=== PATIENT | female | born 1975 | race Caucasian/White ===

== ENCOUNTER → 2018-01-18 | Outpatient (REF) | payer MEDICARE ==
[2018-01-18 20:05] LABS: CHLAMYDIA DNA AMPLIFICATION NEGATIVE (NEGATIVE); GC DNA AMPLIFICATION NEGATIVE (NEGATIVE)
== END ==
LOC: M LAB REF 16:40
DX: Z11.3 Encounter for screening for infections with a predominantly sexual mode of transmission (principal); R30.0 Dysuria
CPT/HCPCS: 87086

== ENCOUNTER 2018-01-27 15:24 | Emergency (ER) | payer MEDICARE, MEDICAID ==
[2018-01-27] MEDS: NS 500 ML IV (16:00)
[2018-01-27 16:15] LABS: HEMATOCRIT 30.9 % (36.0-47.0); HEMOGLOBIN 9.6 g/dl (12.0-15.5); MEAN CORPUSCULAR HGB CONC 31.1 g/dl (32.0-36.5); MEAN CORPUSCULAR VOLUME 70.7 fl (80.0-96.0); PLATELET COUNT, AUTOMATED 113 10^3/uL (150-450); RED BLOOD COUNT 4.37 10^6/uL (4.00-5.40); RED CELL DISTRIBUTION WIDTH 22.9 % (11.5-14.5); WHITE BLOOD COUNT 3.9 10^3/uL (4.0-10.0)
[2018-01-27 16:27] LABS: INR 1.02; PARTIAL THROMBOPLASTIN TIME 26.3 SECONDS (26.8-37.9); PROTHROMBIN TIME 13.5 SECONDS (12.4-14.5)
[2018-01-27 16:44] LABS: POSITIVE MORPH POS FLAG
[2018-01-27 16:45] LABS: ADD MANUAL DIFFER YES; DIFF SLIDE NUMBER 306
[2018-01-27 16:47] LABS: ATYPICAL LYMPH 2 % (0-5); EOSINOPHILS 2 % (0-5); LYMPHOCYTES 45 % (16-52); MONOCYTES 7 % (0-8); NEUTROPHILS 44 % (35-75)
[2018-01-27 16:48] LABS: ALBUMIN/GLOBULIN RATIO 0.77 (1.00-1.93); ALKALINE PHOSPHATASE 70 U/L (45-117); ALT/SGPT 14 U/L (12-78); ANION GAP 4 MEQ/L (8-16); ANISOCYTOSIS 3+; AST/SGOT 27 U/L (7-37); BILIRUBIN,DIRECT < 0.1 MG/DL (0.0-0.2); BILIRUBIN,TOTAL 0.5 MG/DL (0.2-1.0); BLOOD UREA NITROGEN 8 MG/DL (7-18); CALCIUM LEVEL 8.4 MG/DL (8.5-10.1); CARBON DIOXIDE LEVEL 27 MEQ/L (21-32); CHLORIDE LEVEL 109 MEQ/L (98-107); CPK CREATINE PHOSPHOKINASE 68 U/L (26-192); CREATININE FOR GFR 0.76 MG/DL (0.55-1.30); GLOMERULAR FILTRATION RATE > 60.0 (>58); GLUCOSE, FASTING 81 MG/DL (70-100); HYPOCHROMASIA 2+; LIPASE 76 U/L (73-393); MICROCYTOSIS 2+; POTASSIUM SERUM 4.3 MEQ/L (3.5-5.1); SODIUM LEVEL 140 MEQ/L (136-145); TOTAL PROTEIN 6.9 GM/DL (6.4-8.2); TROPONIN I < 0.02 NG/ML (< 0.10)
[2018-01-27 16:49] LABS: OVALOCYTES 1+; PLATELET ESTIMATE DECREASED (NORMAL); POIKILOCYTOSIS 1+
[2018-01-27 16:53] LABS: CK-MB VALUE MASS < 1.0 NG/ML (<3.6); MB/CK RELATIVE INDEX 1.47 (< OR =4); NT-PRO BNP 677 PG/ML (<125)
[2018-01-27] MEDS ORDERED: ISOVUE-370 76% 100ML VIAL (Q9967) As Ordered (17:24)
== END 2018-01-27 19:32 | disposition home or self-care (01) ==
LOC: M ED 15:24
DX: I10 Essential (primary) hypertension (principal); R07.89 Other chest pain; R06.02 Shortness of breath; R00.1 Bradycardia, unspecified; I25.10 Atherosclerotic heart disease of native coronary artery without angina pectoris; I25.2 Old myocardial infarction; I73.00 Raynaud's syndrome without gangrene; M79.7 Fibromyalgia; F41.9 Anxiety disorder, unspecified; Z95.5 Presence of coronary angioplasty implant and graft; F17.200 Nicotine dependence, unspecified, uncomplicated; Z79.899 Other long term (current) drug therapy; Z88.6 Allergy status to analgesic agent; Z88.2 Allergy status to sulfonamides; Z88.1 Allergy status to other antibiotic agents
CPT/HCPCS: Q9967

== ENCOUNTER 2018-05-13 14:45 | Emergency (ER) | payer MEDICARE, MEDICAID ==
[2018-05-13 15:45] LABS: ADD MANUAL DIFFER YES; DIFF SLIDE NUMBER 307; HEMATOCRIT 29.5 % (36.0-47.0); MEAN CORPUSCULAR HEMOGLOBIN 21.8 pg (27.0-33.0); MEAN CORPUSCULAR HGB CONC 30.5 g/dl (32.0-36.5); MEAN CORPUSCULAR VOLUME 71.6 fl (80.0-96.0); PLATELET COUNT, AUTOMATED 108 10^3/uL (150-450); POSITIVE MORPH POS FLAG; RED BLOOD COUNT 4.12 10^6/uL (4.00-5.40); RED CELL DISTRIBUTION WIDTH 20.6 % (11.5-14.5); WHITE BLOOD COUNT 2.8 10^3/uL (4.0-10.0)
[2018-05-13 15:59] LABS: ANISOCYTOSIS 2+; EOSINOPHILS 4 % (0-5); LYMPHOCYTES 53 % (16-52); MONOCYTES 5 % (0-8); NEUTROPHILS 38 % (35-75); SPHEROCYTES 1+
[2018-05-13 16:00] LABS: PLATELET ESTIMATE DECREASED (NORMAL)
[2018-05-13] MEDS: ASPIRIN 81 MG CHEW TABLET PO (16:15)
[2018-05-13 16:16] LABS: ALBUMIN 3.3 GM/DL (3.2-5.2); ALBUMIN/GLOBULIN RATIO 0.79 (1.00-1.93); ALKALINE PHOSPHATASE 79 U/L (45-117); ALT/SGPT 11 U/L (12-78); ANION GAP 9 MEQ/L (8-16); AST/SGOT 17 U/L (7-37); BILIRUBIN,DIRECT 0.2 MG/DL (0.0-0.2); BILIRUBIN,TOTAL 0.5 MG/DL (0.2-1.0); BLOOD UREA NITROGEN 8 MG/DL (7-18); CALCIUM LEVEL 8.4 MG/DL (8.5-10.1); CARBON DIOXIDE LEVEL 27 MEQ/L (21-32); CHLORIDE LEVEL 102 MEQ/L (98-107); CK-MB VALUE MASS < 1.0 NG/ML (<3.6); CPK CREATINE PHOSPHOKINASE 37 U/L (26-192); CREATININE FOR GFR 0.83 MG/DL (0.55-1.30); GLOMERULAR FILTRATION RATE > 60.0 (>58); GLUCOSE, FASTING 74 MG/DL (70-100); LIPASE 49 U/L (73-393); NT-PRO BNP 1210 PG/ML (<125); POTASSIUM SERUM 3.2 MEQ/L (3.5-5.1); SODIUM LEVEL 138 MEQ/L (136-145); TOTAL PROTEIN 7.5 GM/DL (6.4-8.2); TROPONIN I < 0.02 NG/ML (< 0.10)
[2018-05-13 16:29] LABS: KETONE, URINE AUTO RFX TRACE mg/dL (NEGATIVE); LEUKOCYTE ESTERASE UR AUTO RFX NEGATIVE (NEGATIVE); NITRITE, URINE AUTO RFX NEGATIVE (NEGATIVE); RBC, URINE AUTO RFX 1 /HPF (0-3); SPECIFIC GRAVITY UR AUTO RFX 1.006 (1.002-1.035); SQUAM EPITHELIAL CELL UR AURFX 0 /HPF (0-6); WBC, URINE AUTO RFX 1 /HPF (0-3)
[2018-05-13] MEDS ORDERED: ISOVUE-370 76% 100ML VIAL (Q9967) As Ordered (16:53)
[2018-05-13] MEDS: POTASSIUM CHLORIDE 10 MEQ SR TABLET PO (17:20)
[2018-05-13 21:10] LABS: CK-MB VALUE MASS < 1.0 NG/ML (<3.6); CPK CREATINE PHOSPHOKINASE 40 U/L (26-192); TROPONIN I 0.02 NG/ML (< 0.10)
== END 2018-05-13 22:35 | disposition home or self-care (01) ==
LOC: M ED 14:45
DX: R07.9 Chest pain, unspecified (principal); R00.1 Bradycardia, unspecified; R06.02 Shortness of breath; R11.0 Nausea; I10 Essential (primary) hypertension; K21.9 Gastro-esophageal reflux disease without esophagitis; I25.2 Old myocardial infarction; M79.7 Fibromyalgia; M32.9 Systemic lupus erythematosus, unspecified; Z95.5 Presence of coronary angioplasty implant and graft; F17.200 Nicotine dependence, unspecified, uncomplicated; Z88.1 Allergy status to other antibiotic agents; Z88.2 Allergy status to sulfonamides; Z88.6 Allergy status to analgesic agent; Z79.899 Other long term (current) drug therapy; Z79.891 Long term (current) use of opiate analgesic
CPT/HCPCS: Q9967

== ENCOUNTER → 2018-07-02 | Outpatient (REF) | payer MEDICARE, MEDICAID | LOC: M SFHCLERA 10:36 | DX: M32.19 Other organ or system involvement in systemic lupus erythematosus (principal) ==

== ENCOUNTER 2018-07-09 18:48 | Emergency (ER) | payer MEDICARE, MEDICAID ==
[2018-07-09] MEDS: NS 1,000 ML IV (19:33)
[2018-07-09] MEDS: PANTOPRAZOLE 40MG INJ (PROTONIX) (C9113) IV (19:45)
[2018-07-09] MEDS: MORPHINE 4 MG/ML 1ML VIAL/SYRINGE (J2270) IV (19:45)
[2018-07-09] MEDS: ASPIRIN 81 MG CHEW TABLET PO (19:45)
[2018-07-09 19:53] LABS: BASO % 0.9 % (0.0-1.0); EOS # 0.2 10^3/uL (0.0-0.50); EOS % 4.7 % (0.0-3.0); HEMATOCRIT 31.8 % (36.0-47.0); IMMATURE GRANULOCYTE % 0.3 % (0-3.0); LYMPH # 1.1 10^3/uL (1.5-4.5); LYMPH % 34.7 % (24.0-44.0); MEAN CORPUSCULAR HEMOGLOBIN 22.3 pg (27.0-33.0); MEAN CORPUSCULAR HGB CONC 31.4 g/dl (32.0-36.5); MONO # 0.4 10^3/uL (0.0-0.8); MONO % 12.6 % (0.0-5.0); NEUTROPHILS # 1.5 10^3/uL (1.8-7.7); NEUTROPHILS % 46.8 % (36.0-66.0); PLATELET COUNT, AUTOMATED 112 10^3/uL (150-450); RED BLOOD COUNT 4.48 10^6/uL (4.00-5.40); RED CELL DISTRIBUTION WIDTH 24.5 % (11.5-14.5); WHITE BLOOD COUNT 3.2 10^3/uL (4.0-10.0)
[2018-07-09 19:55] LABS: POSITIVE MORPH POS FLAG; SUSPECT SAMPLE POS FLAG
[2018-07-09 20:34] LABS: ALBUMIN 3.1 GM/DL (3.2-5.2); ALBUMIN/GLOBULIN RATIO 1.07 (1.00-1.93); ALKALINE PHOSPHATASE 62 U/L (45-117); ALT/SGPT 10 U/L (12-78); ANION GAP 9 MEQ/L (8-16); AST/SGOT 12 U/L (7-37); BILIRUBIN,DIRECT 0.2 MG/DL (0.0-0.2); BILIRUBIN,TOTAL 0.5 MG/DL (0.2-1.0); BLOOD UREA NITROGEN 8 MG/DL (7-18); CARBON DIOXIDE LEVEL 27 MEQ/L (21-32); CHLORIDE LEVEL 106 MEQ/L (98-107); CK-MB VALUE MASS < 1.0 NG/ML (<3.6); CPK CREATINE PHOSPHOKINASE 18 U/L (26-192); CREATININE FOR GFR 0.74 MG/DL (0.55-1.30); GLOMERULAR FILTRATION RATE > 60.0 (>58); GLUCOSE, FASTING 88 MG/DL (70-100); MB/CK RELATIVE INDEX 5.56 (< OR =4); SODIUM LEVEL 142 MEQ/L (136-145); TROPONIN I < 0.02 NG/ML (< 0.10)
[2018-07-09] MEDS: POTASSIUM CHLORIDE 10 MEQ SR TABLET PO (21:00)
[2018-07-09] MEDS: OXYCODONE/APAP 5MG/325MG(BULK FOR ED) 1 TABLET PO (21:00)
== END 2018-07-09 21:29 | disposition home or self-care (01) ==
LOC: M ED 18:48
DX: K21.0 Gastro-esophageal reflux disease with esophagitis (principal); R07.89 Other chest pain
CPT/HCPCS: C9113

== ENCOUNTER 2018-08-12 13:38 | Emergency (ER) | payer MEDICARE, MEDICAID ==
[2018-08-12 14:30] LABS: KETONE, URINE AUTO RFX NEGATIVE (NEGATIVE); LEUKOCYTE ESTERASE UR AUTO RFX NEGATIVE (NEGATIVE); MUCUS, URINE RFX SMALL (NEGATIVE); NITRITE, URINE AUTO RFX NEGATIVE (NEGATIVE); RBC, URINE AUTO RFX 1 /HPF (0-3); SPECIFIC GRAVITY UR AUTO RFX 1.012 (1.002-1.035); SQUAM EPITHELIAL CELL UR AURFX 1 /HPF (0-6); WBC, URINE AUTO RFX 2 /HPF (0-3)
== END 2018-08-12 15:25 | disposition left against medical advice (07) ==
LOC: M ED 13:38
DX: N39.9 Disorder of urinary system, unspecified (principal); Z53.21 Procedure and treatment not carried out due to patient leaving prior to being seen by health care provider

== ENCOUNTER 2018-08-12 16:17 | Emergency (ER) | payer MEDICARE, MEDICAID | END 2018-08-12 18:27 | disposition home or self-care (01) | LOC: M ED 16:17 | DX: N95.2 Postmenopausal atrophic vaginitis (principal); S30.814A Abrasion of vagina and vulva, initial encounter; X58.XXXA Exposure to other specified factors, initial encounter; Y92.89 Other specified places as the place of occurrence of the external cause; R30.0 Dysuria; I10 Essential (primary) hypertension; M32.9 Systemic lupus erythematosus, unspecified; I25.2 Old myocardial infarction; Z95.5 Presence of coronary angioplasty implant and graft; F17.200 Nicotine dependence, unspecified, uncomplicated; Z88.1 Allergy status to other antibiotic agents; Z88.2 Allergy status to sulfonamides; Z88.6 Allergy status to analgesic agent; Z79.899 Other long term (current) drug therapy; Z79.891 Long term (current) use of opiate analgesic | CPT/HCPCS: 99283 ==

== ENCOUNTER 2019-04-01 11:01 | Emergency (ER) | payer MEDICAID, MEDICARE ==
[~2019-04-01] VITALS: Ht 149.9 cm; Wt 47.3 kg
[~2019-04-01 11:01] MED LIST: ALPR0.25 PO; ATOR80TA59 PO; CLON1TAB8 PO; DURA50DI2 TD; FENTANYL TD; LISI-538 PO; METO1TAB33 PO; NITR0.4S14 SL; OMEP1CAP73 PO; OXYC-517 PO; RANI150T PO; TIZA2TA PO; ZOLP10TA2 PO
[2019-04-01 11:52] LABS: BASO % 0.6 % (0.0-1.0); EOS % 0.9 % (0.0-3.0); HEMATOCRIT 25.8 % (36.0-47.0); HEMOGLOBIN 7.1 g/dl (12.0-15.5); LYMPH # 0.4 10^3/uL (1.5-4.5); LYMPH % 10.1 % (24.0-44.0); MEAN CORPUSCULAR HEMOGLOBIN 17.2 pg (27.0-33.0); MEAN CORPUSCULAR HGB CONC 27.5 g/dl (32.0-36.5); MEAN CORPUSCULAR VOLUME 62.5 fl (80.0-96.0); MONO # 0.2 10^3/uL (0.0-0.8); MONO % 5.5 % (0.0-5.0); NEUTROPHILS # 2.9 10^3/uL (1.8-7.7); NEUTROPHILS % 82.6 % (36.0-66.0); PLATELET COUNT, AUTOMATED 183 10^3/uL (150-450); RED BLOOD COUNT 4.13 10^6/uL (4.00-5.40); WHITE BLOOD COUNT 3.5 10^3/uL (4.0-10.0)
[2019-04-01] MEDS ORDERED: ATIV1TAB10 PO (11:55)
[2019-04-01] MEDS ORDERED: PRED5PAK2 PO (11:55)
[2019-04-01] MEDS ORDERED: TRAZ-252 PO (11:55)
[2019-04-01] MEDS ORDERED: MORPHINE 2 MG/ML 1ML VIAL (J2270) IV PRN (12:00)
[2019-04-01] MEDS ORDERED: ONDANSETRON 4MG/2ML VIAL (J2405) IV ONE (12:00)
--- NOTE | 2019-04-01 12:24 | REP ---
PORTABLE CHEST X-RAY: Single view. HISTORY: Chest pain. COMPARISON STUDY: July 09, 2018. FINDINGS: EKG monitoring electrodes overlie the chest. The lungs are well inflated and clear. Pleural angles are sharp. Heart size is borderline unchanged. Pulmonary vasculature is not increased. IMPRESSION: Borderline heart size. Otherwise no acute disease. Electronically Signed by Miguel A Roman MD 04/01/2019 01:06 P
[2019-04-01 12:35] LABS: ALBUMIN 3.4 GM/DL (3.2-5.2); ALT/SGPT 14 U/L (12-78); BILIRUBIN,DIRECT < 0.1 MG/DL (0.0-0.2); BILIRUBIN,TOTAL 0.2 MG/DL (0.2-1.0); BLOOD UREA NITROGEN 7 MG/DL (7-18); CALCIUM LEVEL 8.1 MG/DL (8.5-10.1); CARBON DIOXIDE LEVEL 24 MEQ/L (21-32); CHLORIDE LEVEL 113 MEQ/L (98-107); CK-MB VALUE MASS < 1.0 NG/ML (<3.6); CPK CREATINE PHOSPHOKINASE 57 U/L (26-192); CREATININE FOR GFR 0.64 MG/DL (0.55-1.30); GLOMERULAR FILTRATION RATE > 60.0 (>58); GLUCOSE, FASTING 125 MG/DL (70-100); LIPASE 69 U/L (73-393); MB/CK RELATIVE INDEX 1.75 (< OR =4); POTASSIUM SERUM 3.6 MEQ/L (3.5-5.1); SODIUM LEVEL 143 MEQ/L (136-145); TROPONIN I < 0.02 NG/ML (< 0.10)
[2019-04-01] MEDS ORDERED: GI COCKTAIL 50ML BTL(HYOSCYAMINE/MAALOX/LIDOCAINE VISCOUS)(1:3:1) PO ONE (12:45)
[2019-04-01] MEDS ORDERED: KETOROLAC 30 MG/ML VIAL (J1885) IV ONE (13:00)
[2019-04-01] MEDS ORDERED: FERR325T3 PO (13:40)
[2019-04-01 13:43] VITALS: BP 152/76
[2019-04-01 14:11] LABS: FERRITIN 10 NG/ML (8-252); FOLATE 16.7 NG/ML (>5.4); IRON (FE) 21 UG/DL (50-170); PERCENT SATURATION 4.7 % (13.2-45.0); TOTAL IRON BINDING CAPACITY 445 UG/DL (250-450); VITAMIN B12 LEVEL 270 PG/ML (247-911)
--- NOTE | 2019-04-02 09:36 | ECGEPIP ---
[facility] - ED Test Date: 2019-04-01 Pat Name: KENDRA BROOKE Department: Room: - Gender: Female [employer] Installer: SEVERIANO : 1975 Requested By: Daniel Castaneda Order Number: [id number] Reading MD: Rola Echols Measurements Intervals [place] Rate: 59 P: 56 NV: 181 QRS: 39 QRSD: 95 T: 22 QT: 494 QTc: 490 Interpretive Statements SINUS BRADYCARDIA POSSIBLE ANTERIOR MYOCARDIAL INFARCTION, OF INDETERMINATE AGE Electronically Signed on 04-02-2019 9:36:01 EDT by Rola Echols
[2019-07-26] MEDS ORDERED: GABA-843 PO (09:34)
[2019-07-26] MEDS ORDERED: PROBCAP14 PO (09:34)
[2019-07-26] MEDS ORDERED: GNP250TA9 PO (09:34)
[2019-07-26] MEDS ORDERED: ZANT150T40 PO (09:34)
[2019-07-26] MEDS ORDERED: GABA-1171 PO (09:34)
[2019-07-26] MEDS ORDERED: ALBU83IN INH (09:40)
[2019-08-09] MEDS ORDERED: ASPI81TA85 PO (11:48)
== END 2019-04-01 14:04 | disposition home or self-care (01) ==
LOC: M ED 11:01
DX: G89.4 Chronic pain syndrome (principal); M32.9 Systemic lupus erythematosus, unspecified; D50.9 Iron deficiency anemia, unspecified; R00.1 Bradycardia, unspecified; R07.89 Other chest pain; I10 Essential (primary) hypertension; K21.9 Gastro-esophageal reflux disease without esophagitis; F41.9 Anxiety disorder, unspecified; Z88.2 Allergy status to sulfonamides; Z88.6 Allergy status to analgesic agent; Z88.8 Allergy status to other drugs, medicaments and biological substances; Z88.1 Allergy status to other antibiotic agents; Z95.5 Presence of coronary angioplasty implant and graft; Z79.899 Other long term (current) drug therapy; Z79.52 Long term (current) use of systemic steroids
CPT/HCPCS: 71045; 80048; 80076; 82550; 82553; 82607; 82728; 82746; 83550; 83690; 84484; 85025; 93005; 93041; 94760; 96374; 96375; 99284; J1885; J2270; J2405

== ENCOUNTER → 2019-05-05 | Outpatient (CLI) | payer MEDICARE, MEDICAID ==
[~2019-05-05] MED LIST changes: +ALBU83IN INH; +ALPR0.25; +AMOX875T PO; +ASPI81TA85 PO; +ATIV1TAB10 PO; +BACL10TA8 PO; +FERR325T3 PO; +FLUTISP; +GABA-1171 PO; +GABA-843 PO; +GNP250TA9 PO; +MIRT1TAB17 PO; +ONDA4TAB6 PO; +OXYC-517; +PERI12LIQ PO; +POTA20TA6 PO; +PRED20TA PO; +PRED5PAK2 PO; +PROBCAP14 PO; +TRAZ-252 PO; +ZANT150T40 PO
[2019-05-05 16:47] LABS: APPEARANCE, URINE CLEAR (CLEAR); BACTERIA, URINE AUTO NEGATIVE (NEGATIVE); BILIRUBIN, URINE AUTO NEGATIVE (NEGATIVE); BLOOD, URINE BLOOD 1+ (NEGATIVE); COLOR, URINE YELLOW (YELLOW); GLUCOSE, URINE (UA) AUTO NEGATIVE (NEGATIVE); KETONE, URINE AUTO NEGATIVE (NEGATIVE); LEUKOCYTE ESTERASE, URINE AUTO NEGATIVE (NEGATIVE); NITRITE, URINE AUTO NEGATIVE (NEGATIVE); PROTEIN, URINE AUTO NEGATIVE (NEGATIVE); RBC, URINE AUTO 2 /HPF (0-3); SPECIFIC GRAVITY URINE AUTO 1.008 (1.002-1.035); SQUAMOUS EPITHELIAL CELL UR AU 0 /HPF (0-6); UROBILINOGEN, URINE AUTO 0.2 mg/dL (0.0-2.0); WBC, URINE AUTO 1 /HPF (0-3)
[2019-05-05 17:02] LABS: C REACTIVE PROTEIN QUANTITATIV < 0.30 MG/DL (0.00-0.30); COMPLEMENT C3 109 MG/DL (90-180); COMPLEMENT C4 19 MG/DL (10-40); CREATININE,RANDOM URINE 56.2 MG/DL; TOTAL PROTEIN,RANDOM URINE 8.3 MG/DL (0.0-12.0)
[2019-05-06 09:52] LABS: HEPATITIS B SURFACE ANTIBODY POSITIVE (POSITIVE)
[2019-05-06 10:03] LABS: HEPATITIS B SURFACE ANTIGEN NEGATIVE (NEGATIVE)
[2019-05-06 10:32] LABS: HEPATITIS C VIRUS ABY INDEX 0.1 INDEX (<0.8)
[2019-05-11 14:22] LABS: ANTI DS-DNA AB <1:10 titer (.); HEPATITIS B CORE ANTIBODY IGG Negative (Negative)
== END ==
LOC: M WUC 14:51
PROVIDERS: ATTEND Internal Medicine Rheumatology
DX: M32.19 Other organ or system involvement in systemic lupus erythematosus (principal)
CPT/HCPCS: 36415; 81001; 82570; 84156; 85652; 86140; 86160; 86225; 86480; 86704; 86706; 86803; 87340; G0463

== ENCOUNTER 2019-05-28 19:50 | Emergency (ER) | payer MEDICARE, MEDICAID ==
[~2019-05-28] VITALS: Ht 149.9 cm; Wt 58.2 kg
[~2019-05-28 19:50] MED LIST changes: -ALBU83IN INH; -ALPR0.25; -AMOX875T PO; -ASPI81TA85 PO; -BACL10TA8 PO; -FLUTISP; -GABA-1171 PO; -GABA-843 PO; -GNP250TA9 PO; -MIRT1TAB17 PO; -OMEP1CAP73 PO; +OMEP20CA4 PO; -ONDA4TAB6 PO; -OXYC-517; -PERI12LIQ PO; -POTA20TA6 PO; -PRED20TA PO; -PROBCAP14 PO; -ZANT150T40 PO
[2019-05-28 19:51] VITALS: BP 138/74
[2019-05-28] MEDS ORDERED: BACL10TA8 PO (20:00)
[2019-05-28] MEDS ORDERED: MIRT1TAB17 PO (20:00)
[2019-05-28] MEDS ORDERED: PERI12LIQ PO (20:03)
[2019-05-28] MEDS ORDERED: AMOX875T PO (20:44)
[2019-05-28] MEDS ORDERED: AMOXICILLIN 500 MG CAP PO ONE (20:45)
== END 2019-05-28 20:52 | disposition home or self-care (01) ==
LOC: M ED 19:50
DX: K04.7 Periapical abscess without sinus (principal); K02.9 Dental caries, unspecified; R22.0 Localized swelling, mass and lump, head; M32.9 Systemic lupus erythematosus, unspecified; G89.29 Other chronic pain; F41.9 Anxiety disorder, unspecified; F32.9 Major depressive disorder, single episode, unspecified; F17.210 Nicotine dependence, cigarettes, uncomplicated; Z88.2 Allergy status to sulfonamides; Z88.6 Allergy status to analgesic agent; Z88.1 Allergy status to other antibiotic agents

== ENCOUNTER 2019-07-21 18:46 | Emergency (ER) | payer MEDICARE, MEDICAID ==
[~2019-07-21] VITALS: Ht 149.9 cm; Wt 63.1 kg
[~2019-07-21 18:46] MED LIST changes: +AMOX875T PO; +BACL10TA8 PO; +MIRT1TAB17 PO; +PERI12LIQ PO
[2019-07-21] MEDS ORDERED: FLUTISP (18:55)
[2019-07-21] MEDS ORDERED: ALPR0.25 (18:55)
[2019-07-21] MEDS ORDERED: OXYC-517 (18:55)
[2019-07-21] MEDS ORDERED: ONDANSETRON 4MG/2ML VIAL (J2405) IV ONE (19:30)
[2019-07-21] MEDS ORDERED: NS 1,000 ML IV ONE (19:30)
[2019-07-21 20:12] LABS: BASO % 1.1 % (0.0-1.0); EOS # 0.1 10^3/uL (0.0-0.5); EOS % 3.5 % (0.0-3.0); HEMOGLOBIN 8.2 g/dl (12.0-15.5); LYMPH # 1.1 10^3/uL (1.5-5.0); LYMPH % 38.4 % (24.0-44.0); MEAN CORPUSCULAR HGB CONC 27.3 g/dl (32.0-36.5); MEAN CORPUSCULAR VOLUME 62.1 fl (80.0-96.0); MONO # 0.5 10^3/uL (0.0-0.8); MONO % 17.3 % (0.0-5.0); NEUTROPHILS # 1.1 10^3/uL (1.5-8.5); NEUTROPHILS % 39.3 % (36.0-66.0); PLATELET COUNT, AUTOMATED 114 10^3/uL (150-450); RED BLOOD COUNT 4.83 10^6/uL (4.00-5.40); WHITE BLOOD COUNT 2.8 10^3/uL (4.0-10.0)
[2019-07-21 20:28] LABS: HYPOCHROMASIA 2+; MICROCYTOSIS 4+
[2019-07-21 20:29] LABS: ANISOCYTOSIS 3+; POIKILOCYTOSIS 2+; TARGET CELLS 2+
[2019-07-21 20:30] LABS: OVALOCYTES 1+
[2019-07-21 20:31] LABS: GIANT PLATELETS 1+; PLATELET ESTIMATE DECREASED (NORMAL); SCHISTOCYTES 1+
[2019-07-21 20:33] LABS: ERYTHROCYTE SEDIMENTATION RATE 24 mm/hr (0-20)
[2019-07-21 20:40] LABS: ALBUMIN 3.5 GM/DL (3.2-5.2); ALT/SGPT 9 U/L (12-78); BILIRUBIN,DIRECT 0.1 MG/DL (0.0-0.2); BILIRUBIN,TOTAL 0.5 MG/DL (0.2-1.0); BLOOD UREA NITROGEN 8 MG/DL (7-18); C REACTIVE PROTEIN QUANTITATIV < 0.30 MG/DL (0.00-0.30); CALCIUM LEVEL 8.3 MG/DL (8.5-10.1); CARBON DIOXIDE LEVEL 27 MEQ/L (21-32); CHLORIDE LEVEL 107 MEQ/L (98-107); CREATININE FOR GFR 0.74 MG/DL (0.55-1.30); GLOMERULAR FILTRATION RATE > 60.0 (>58); GLUCOSE, FASTING 86 MG/DL (70-100); LIPASE 86 U/L (73-393); POTASSIUM SERUM 3.2 MEQ/L (3.5-5.1); SODIUM LEVEL 140 MEQ/L (136-145); TOTAL PROTEIN 6.8 GM/DL (6.4-8.2)
[2019-07-21] MEDS ORDERED: POTA20TA6 PO (22:43)
[2019-07-21] MEDS ORDERED: ONDA4TAB6 PO (22:43)
[2019-07-21] MEDS ORDERED: PRED20TA PO (22:43)
[2019-07-21] MEDS ORDERED: ONDANSETRON 4 MG ORAL DISINTEGRATING TAB (Q0162 PER 1MG) PO ONE (22:45)
[2019-07-21] MEDS ORDERED: methylPREDNISolone INJ 125 MG/2 ML VIAL (J2930) IV ONE (22:45)
[2019-07-21 22:59] VITALS: BP 173/81
[2019-07-26] MEDS ORDERED: ZANT150T40 PO (09:34)
[2019-07-26] MEDS ORDERED: GNP250TA9 PO (09:34)
[2019-07-26] MEDS ORDERED: GABA-1171 PO (09:34)
[2019-07-26] MEDS ORDERED: GABA-843 PO (09:34)
[2019-07-26] MEDS ORDERED: PROBCAP14 PO (09:34)
[2019-07-26] MEDS ORDERED: ALBU83IN INH (09:40)
== END 2019-07-21 23:08 | disposition home or self-care (01) ==
LOC: M ED 18:46
DX: M32.9 Systemic lupus erythematosus, unspecified (principal); E86.0 Dehydration; I25.10 Atherosclerotic heart disease of native coronary artery without angina pectoris; Z79.899 Other long term (current) drug therapy; Z88.1 Allergy status to other antibiotic agents; Z88.2 Allergy status to sulfonamides; Z88.8 Allergy status to other drugs, medicaments and biological substances; Z91.040 Latex allergy status; F17.210 Nicotine dependence, cigarettes, uncomplicated
CPT/HCPCS: 36415; 80048; 80076; 81001; 83690; 85025; 85652; 86140; 96361; 96374; 96375; 99284; J2405; J2930; Q0162

== ENCOUNTER → 2019-08-09 | Day surgery (SDC) | payer MEDICARE, MEDICAID ==
[~2019-08-09] VITALS: Ht 149.9 cm; Wt 64.9 kg
[~2019-08-09] MED LIST changes: +ALBU83IN INH; +ALPR0.25; +ASPI81TA85 PO; +FLUTISP; +GABA-1171 PO; +GABA-843 PO; +GNP250TA9 PO; +NS 1,000 ML IV ONE; +ONDA4TAB6 PO; +OXYC-517; +POTA20TA6 PO; +PRED20TA PO; +PROBCAP14 PO; +ZANT150T40 PO
[2019-08-09 11:48] VITALS: BP 194/81
== END | disposition home or self-care (01) ==
LOC: M OPP 10:03
PROVIDERS: ATTEND Internal Medicine Gastroenterology
DX: R01.1 Cardiac murmur, unspecified (principal)

== ENCOUNTER → 2019-08-09 | Outpatient (CLI) | payer MEDICARE, MEDICAID ==
[~2019-08-09] MED LIST changes: -NS 1,000 ML IV ONE
--- NOTE | 2019-08-09 19:34 | ECHO ---
DATE OF PROCEDURE: 08/09/2019 REFERRING PROVIDER: Quin Zavala NP INDICATION: Heart murmur. Height 149 cm, weight 46 kg. DIMENSIONS: IVS: 1.0 LV: 4.9 LVPW: 1.1 LA: 4.5 Aorta: 2.4 RV: 2.5 Left atrial volume index: 51 IVC: 2.1 Mitral E wave velocity: 136 A wave: 124 E prime septal: 8.6 E prime lateral: 7.7 FINDINGS: The study is of acceptable technical quality. The patient is in sinus rhythm. Left ventricle is normal size and systolic function with estimated left ventricular ejection fraction (LVEF) 60-65%. No segmental wall motion abnormalities are appreciated. Right ventricle is normal size and systolic function. Left atrium is probably severely enlarged. Right atrium appears normal. Aortic valve is minimally sclerotic but mobility of leaflets seems preserved. Mitral, tricuspid and pulmonic valves appear normal. Trivial pericardial effusion is noted. Inferior vena cava is borderline dilated but almost completely collapses with respiration, indicative of probably normal central venous pressure. Aortic root, aortic arch, and abdominal aorta all appear normal. Doppler interrogation of aortic valve reveals trace insufficiency and trivial stenosis with mean gradient 12 mmHg. There is mild mitral insufficiency and no significant tricuspid insufficiency. Trace pulmonic insufficiency is seen. Mitral inflow pattern and tissue Doppler imaging of mitral annulus revealed likely normal diastolic function even though tissue Doppler velocities of mitral annulus are mildly reduced. CONCLUSIONS: 1. Study is of good technical quality. 2. Normal left ventricular (LV) size, systolic and diastolic function. 3. Aortic sclerosis with trivial stenosis and trivial insufficiency. 4. Mild mitral insufficiency. 5. Probably normal central venous pressure. 6. Unable to estimate pulmonary artery pressure. COMMENTS: Subacute bacterial endocarditis (SBE) prophylaxis is not recommended.
== END ==
LOC: M CARPUL 09:27
PROVIDERS: ATTEND Nurse Practitioner Adult Health
DX: R01.1 Cardiac murmur, unspecified (principal)

== ENCOUNTER → 2019-11-30 | Outpatient (REF) | payer MEDICARE, MEDICAID ==
[~2019-11-30] MED LIST changes: +OMEP1CAP73 PO; -OMEP20CA4 PO
[2019-11-30 13:13] LABS: BASO % 0.4 % (0.0-1.0); EOS # 0.1 10^3/uL (0.0-0.5); EOS % 2.7 % (0.0-3.0); HEMATOCRIT 42.3 % (36.0-47.0); HEMOGLOBIN 13.5 g/dl (12.0-15.5); LYMPH # 1.1 10^3/uL (1.5-5.0); LYMPH % 24.4 % (24.0-44.0); MEAN CORPUSCULAR HGB CONC 31.9 g/dl (32.0-36.5); MEAN CORPUSCULAR VOLUME 87.8 fl (80.0-96.0); MONO # 0.5 10^3/uL (0.0-0.8); NEUTROPHILS # 2.8 10^3/uL (1.5-8.5); NEUTROPHILS % 62.3 % (36.0-66.0); PLATELET COUNT, AUTOMATED 122 10^3/uL (150-450); RED BLOOD COUNT 4.82 10^6/uL (4.00-5.40); WHITE BLOOD COUNT 4.5 10^3/uL (4.0-10.0)
[2019-11-30 13:14] LABS: ALBUMIN 3.8 GM/DL (3.2-5.2); ALT/SGPT 23 U/L (12-78); BILIRUBIN,TOTAL 0.2 MG/DL (0.2-1.0); BLOOD UREA NITROGEN 19 MG/DL (7-18); C REACTIVE PROTEIN QUANTITATIV < 0.30 MG/DL (0.00-0.30); CALCIUM LEVEL 8.5 MG/DL (8.5-10.1); CARBON DIOXIDE LEVEL 27 MEQ/L (21-32); CHLORIDE LEVEL 107 MEQ/L (98-107); COMPLEMENT C3 116 MG/DL (90-180); COMPLEMENT C4 20 MG/DL (10-40); CREATININE FOR GFR 0.97 MG/DL (0.55-1.30); GLOMERULAR FILTRATION RATE > 60.0 (>58); GLUCOSE, FASTING 91 MG/DL (70-100); POTASSIUM SERUM 4.2 MEQ/L (3.5-5.1); SODIUM LEVEL 138 MEQ/L (136-145)
[2019-11-30 13:57] LABS: ERYTHROCYTE SEDIMENTATION RATE 7 mm/hr (0-20)
[2019-12-05 14:06] LABS: ANTI DS-DNA AB Negative (Negative); HAPTOGLOBIN 167 mg/dL (42-296); SSA SJOGRENS A >8.0 AI (0.0-0.9); SSB SJOGRENS B <0.2 AI (0.0-0.9)
== END ==
LOC: M SFHCRHEU 09:22
PROVIDERS: ATTEND Internal Medicine
DX: M32.9 Systemic lupus erythematosus, unspecified (principal); R68.2 Dry mouth, unspecified
CPT/HCPCS: 36415; 80053; 83010; 84156; 85025; 85652; 86140; 86160; 86225; 86235; 86480; 86880; G0463

== ENCOUNTER 2019-12-12 09:30 | Outpatient (CLI) | payer MEDICARE, MEDICAID ==
[~2019-12-12] VITALS: Ht 149.9 cm; Wt 65.2 kg
[2019-12-12 09:45] VITALS: BP 148/68
[2019-12-12] MEDS ORDERED: EPINEPHrine INJ 1 MG/ML 1ML VIAL IM PRN (10:00)
[2019-12-12] MEDS ORDERED: methylPREDNISolone INJ 125 MG/2 ML VIAL (J2930) IV PRN (10:00)
[2019-12-12] MEDS ORDERED: ONDANSETRON 4MG/2ML VIAL (J2405) IV ONE (10:00)
[2019-12-12] MEDS ORDERED: ALBUTEROL SULFATE 2.5 MG/0.5 ML INH NEB SOLN INH PRN (10:00)
[2019-12-12] MEDS ORDERED: diphenhydrAMINE INJ 50MG/ML VIAL (J1200) IV PRN (10:00)
[2019-12-12] MEDS ORDERED: BELIMUMAB IV ONE (11:00)
[2019-12-12] MEDS ORDERED: NS IV ONE (11:00)
[2019-12-12 12:00] VITALS: BP 141/82
== END 2019-12-12 12:00 | disposition home or self-care (01) ==
LOC: M INFU 09:30
PROVIDERS: ATTEND Internal Medicine
DX: M32.9 Systemic lupus erythematosus, unspecified (principal); Z88.0 Allergy status to penicillin; Z88.1 Allergy status to other antibiotic agents; Z88.8 Allergy status to other drugs, medicaments and biological substances; Z91.040 Latex allergy status
CPT/HCPCS: 82570; 84156; 96365; J0490

== ENCOUNTER 2019-12-26 09:28 | Outpatient (CLI) | payer MEDICARE, MEDICAID ==
[~2019-12-26] VITALS: Ht 149.9 cm; Wt 65.2 kg
[2019-12-26] MEDS ORDERED: ALBUTEROL SULFATE 2.5 MG/0.5 ML INH NEB SOLN INH PRN (09:45)
[2019-12-26] MEDS ORDERED: diphenhydrAMINE INJ 50MG/ML VIAL (J1200) IV PRN (09:45)
[2019-12-26] MEDS ORDERED: ONDANSETRON 4MG/2ML VIAL (J2405) IV ONE (09:45)
[2019-12-26] MEDS ORDERED: EPINEPHrine INJ 1 MG/ML 1ML VIAL IM PRN (09:45)
[2019-12-26] MEDS ORDERED: methylPREDNISolone INJ 125 MG/2 ML VIAL (J2930) IV PRN (09:45)
[2019-12-26] MEDS ORDERED: BELIMUMAB IV ONE (10:00)
[2019-12-26] MEDS ORDERED: NS IV ONE (10:00)
[2019-12-26 10:14] VITALS: BP 117/73
[2019-12-26 12:15] VITALS: BP 126/82
== END 2019-12-26 12:15 | disposition home or self-care (01) ==
LOC: M INFU 09:28
PROVIDERS: ATTEND Internal Medicine
DX: M32.9 Systemic lupus erythematosus, unspecified (principal); Z88.2 Allergy status to sulfonamides; Z88.1 Allergy status to other antibiotic agents; Z88.6 Allergy status to analgesic agent; Z91.040 Latex allergy status
CPT/HCPCS: 96365; 96375; J0490; J2405

== ENCOUNTER 2020-01-09 10:51 | Outpatient (CLI) | payer MEDICARE, MEDICAID ==
[~2020-01-09] VITALS: Ht 149.9 cm; Wt 65.2 kg
[2020-01-09 10:50] VITALS: BP 128/71
[2020-01-09] MEDS ORDERED: methylPREDNISolone INJ 125 MG/2 ML VIAL (J2930) IV PRN (11:00)
[2020-01-09] MEDS ORDERED: EPINEPHrine INJ 1 MG/ML 1ML VIAL IM PRN (11:00)
[2020-01-09] MEDS ORDERED: ALBUTEROL SULFATE 2.5 MG/0.5 ML INH NEB SOLN INH PRN (11:00)
[2020-01-09] MEDS ORDERED: ONDANSETRON 4MG/2ML VIAL (J2405) IV ONE (11:00)
[2020-01-09] MEDS ORDERED: diphenhydrAMINE INJ 50MG/ML VIAL (J1200) IV PRN (11:00)
[2020-01-09] MEDS ORDERED: BELIMUMAB in NS 250 ML OVER 1 HOUR IV ONE ×3 (11:30)
[2020-01-09 12:50] VITALS: BP 137/71
== END 2020-01-09 12:50 | disposition home or self-care (01) ==
LOC: M INFU 10:51
PROVIDERS: ATTEND Internal Medicine
DX: M32.9 Systemic lupus erythematosus, unspecified (principal); Z88.2 Allergy status to sulfonamides; Z88.6 Allergy status to analgesic agent; Z88.8 Allergy status to other drugs, medicaments and biological substances; Z91.040 Latex allergy status
CPT/HCPCS: 96365; J0490; J2405

== ENCOUNTER 2020-02-06 10:36 | Outpatient (CLI) | payer MEDICARE, MEDICAID ==
[~2020-02-06] VITALS: Ht 149.9 cm; Wt 65.2 kg
[2020-02-06 10:40] VITALS: BP 161/77
[2020-02-06] MEDS ORDERED: methylPREDNISolone INJ 125 MG/2 ML VIAL (J2930) IV PRN (10:45)
[2020-02-06] MEDS ORDERED: EPINEPHrine INJ 1 MG/ML 1ML AMP IM PRN (10:45)
[2020-02-06] MEDS ORDERED: ALBUTEROL SULFATE 2.5 MG/0.5 ML INH NEB SOLN INH PRN (10:45)
[2020-02-06] MEDS ORDERED: diphenhydrAMINE 50MG/ML VIAL (J1200) IV PRN (10:45)
[2020-02-06] MEDS ORDERED: BELIMUMAB IV ONE (11:00)
[2020-02-06] MEDS ORDERED: NS IV ONE (11:00)
[2020-02-06] MEDS ORDERED: ONDANSETRON 4MG/2ML VIAL IV ONE (11:15)
[2020-02-06 12:50] VITALS: BP 154/76
== END 2020-02-06 12:50 | disposition home or self-care (01) ==
LOC: M INFU 10:36
PROVIDERS: ATTEND Internal Medicine
DX: M32.9 Systemic lupus erythematosus, unspecified (principal); Z88.2 Allergy status to sulfonamides; Z88.8 Allergy status to other drugs, medicaments and biological substances; Z91.040 Latex allergy status; Z91.048 Other nonmedicinal substance allergy status
CPT/HCPCS: 96365; 96375; J0490; J2405

== ENCOUNTER → 2020-03-01 | Outpatient (REF) | payer MEDICARE, MEDICAID ==
[2020-03-01 20:13] LABS: BASO % 0.7 % (0.0-1.0); EOS # 0.1 10^3/uL (0.0-0.5); HEMOGLOBIN 14.4 g/dl (12.0-15.5); LYMPH # 1.4 10^3/uL (1.5-5.0); LYMPH % 22.9 % (24.0-44.0); MEAN CORPUSCULAR HEMOGLOBIN 31.4 pg (27.0-33.0); MEAN CORPUSCULAR HGB CONC 33.5 g/dl (32.0-36.5); MEAN CORPUSCULAR VOLUME 93.9 fl (80.0-96.0); MONO # 0.5 10^3/uL (0.0-0.8); MONO % 8.2 % (0.0-5.0); NEUTROPHILS # 3.9 10^3/uL (1.5-8.5); NEUTROPHILS % 65.4 % (36.0-66.0); PLATELET COUNT, AUTOMATED 213 10^3/uL (150-450); RED BLOOD COUNT 4.58 10^6/uL (4.00-5.40)
[2020-03-01 20:44] LABS: ALBUMIN 3.6 GM/DL (3.2-5.2); BILIRUBIN,TOTAL 0.4 MG/DL (0.2-1.0); C REACTIVE PROTEIN QUANTITATIV 0.3 MG/DL (0.00-0.30); CALCIUM LEVEL 8.8 MG/DL (8.5-10.1); CREATININE FOR GFR 2.01 MG/DL (0.55-1.30); GLOMERULAR FILTRATION RATE 28.3 (>58); POTASSIUM SERUM 5.1 MEQ/L (3.5-5.1); TOTAL PROTEIN 7.1 GM/DL (6.4-8.2)
[2020-03-01 21:07] LABS: ERYTHROCYTE SEDIMENTATION RATE 16 mm/hr (0-20)
== END ==
LOC: M SFHCRHEU 09:17
PROVIDERS: ATTEND Internal Medicine
DX: M32.9 Systemic lupus erythematosus, unspecified (principal)
CPT/HCPCS: 36415; 80053; 82570; 84156; 85025; 85652; 86140; G0463

== ENCOUNTER 2020-03-05 10:45 | Outpatient (CLI) | payer MEDICARE, MEDICAID ==
[~2020-03-05] VITALS: Ht 149.9 cm; Wt 65.2 kg
[~2020-03-05 10:45] MED LIST changes: +ALBUTEROL SULFATE 2.5 MG/0.5 ML INH NEB SOLN INH PRN; +EPINEPHrine INJ 1 MG/ML 1ML AMP IM PRN; +ONDANSETRON 4MG/2ML VIAL IV ONE; +diphenhydrAMINE 50MG/ML VIAL (J1200) IV PRN; +methylPREDNISolone INJ 125 MG/2 ML VIAL (J2930) IV PRN
[2020-03-05] MEDS ORDERED: BELIMUMAB IV ONE (11:00)
[2020-03-05] MEDS ORDERED: NS IV ONE (11:00)
[2020-03-05 11:12] VITALS: BP 106/62
[2020-03-05 12:30] VITALS: BP 97/54
[2020-03-05 13:45] VITALS: BP 111/61
== END 2020-03-05 13:00 | disposition home or self-care (01) ==
LOC: M INFU 10:45
PROVIDERS: ATTEND Internal Medicine
DX: M32.9 Systemic lupus erythematosus, unspecified (principal); Z88.1 Allergy status to other antibiotic agents; Z88.2 Allergy status to sulfonamides; Z88.8 Allergy status to other drugs, medicaments and biological substances; Z91.040 Latex allergy status
CPT/HCPCS: 96365; 96375; J0490; J2405

== ENCOUNTER 2020-04-02 12:20 | Outpatient (CLI) | payer MEDICARE, MEDICAID ==
[~2020-04-02] VITALS: Ht 149.9 cm; Wt 65.2 kg
[~2020-04-02 12:20] MED LIST changes: -ALBUTEROL SULFATE 2.5 MG/0.5 ML INH NEB SOLN INH PRN; -EPINEPHrine INJ 1 MG/ML 1ML AMP IM PRN; -FLUTISP; +FLUTISP INH; -ONDANSETRON 4MG/2ML VIAL IV ONE; -diphenhydrAMINE 50MG/ML VIAL (J1200) IV PRN; -methylPREDNISolone INJ 125 MG/2 ML VIAL (J2930) IV PRN
[2020-04-02 12:25] VITALS: BP 122/79
[2020-04-02] MEDS ORDERED: EPINEPHrine INJ 1 MG/ML 1ML AMP IM PRN (12:45)
[2020-04-02] MEDS ORDERED: NS 1,000 ML IV SCH (12:45)
[2020-04-02] MEDS ORDERED: ALBUTEROL SULFATE 2.5 MG/0.5 ML INH NEB SOLN INH PRN (12:45)
[2020-04-02] MEDS ORDERED: methylPREDNISolone 125MG 2ML VIAL IV PRN (12:45)
[2020-04-02] MEDS ORDERED: ONDANSETRON 4MG/2ML VIAL IV ONE (12:45)
[2020-04-02] MEDS ORDERED: diphenhydrAMINE 50MG/ML VIAL (J1200) IV PRN (12:45)
[2020-04-02] MEDS ORDERED: BELIMUMAB in NS 250 ML OVER 1 HOUR IV ONE ×3 (13:00)
[2020-04-02 14:30] VITALS: BP 129/63
[2020-04-09] MEDS ORDERED: ATOR40TA75 PO (14:14)
[2020-04-09] MEDS ORDERED: LISI40TA PO (14:14)
[2020-04-09] MEDS ORDERED: PRED10PA PO (14:30)
[2020-04-09] MEDS ORDERED: MYCO500T PO (14:30)
[2020-04-09] MEDS ORDERED: ALPR1TAB3 PO (14:30)
[2020-04-09] MEDS ORDERED: SYMB16INH INH (14:30)
[2020-04-09] MEDS ORDERED: NEUR300C PO (14:30)
[2020-04-09] MEDS ORDERED: POTA10PO PO (14:30)
[2020-04-09] MEDS ORDERED: MAGN400C PO (14:30)
== END 2020-04-02 14:30 | disposition home or self-care (01) ==
LOC: M INFU 12:20
PROVIDERS: ATTEND Internal Medicine
DX: M32.9 Systemic lupus erythematosus, unspecified (principal); M02.9 Reactive arthropathy, unspecified; Z88.1 Allergy status to other antibiotic agents; Z88.2 Allergy status to sulfonamides; Z88.8 Allergy status to other drugs, medicaments and biological substances; Z91.040 Latex allergy status; Z91.048 Other nonmedicinal substance allergy status
CPT/HCPCS: 96365; J0490

== ENCOUNTER → 2020-04-12 | Outpatient (CLI) | payer MEDICARE, MEDICAID ==
[~2020-04-12] MED LIST changes: +ALPR1TAB3 PO; -ASPI81TA85 PO; +ASPI81TA86 PO; +ATOR40TA75 PO; +LISI40TA PO; +MAGN400C PO; +MYCO500T PO; +NEUR300C PO; +POTA10PO PO; +PRED10PA PO; +SYMB16INH INH
[2020-04-12 14:38] LABS: BASO % 0.6 % (0.0-1.0); EOS # 0.1 10^3/uL (0.0-0.5); EOS % 1.4 % (0.0-3.0); HEMATOCRIT 40.3 % (36.0-47.0); HEMOGLOBIN 13.3 g/dl (12.0-15.5); LYMPH # 0.7 10^3/uL (1.5-5.0); LYMPH % 10.1 % (24.0-44.0); MEAN CORPUSCULAR VOLUME 97.1 fl (80.0-96.0); MONO # 0.5 10^3/uL (0.0-0.8); MONO % 7.3 % (0.0-5.0); NEUTROPHILS # 5.7 10^3/uL (1.5-8.5); NEUTROPHILS % 79.9 % (36.0-66.0); PLATELET COUNT, AUTOMATED 204 10^3/uL (150-450); RED BLOOD COUNT 4.15 10^6/uL (4.00-5.40); WHITE BLOOD COUNT 7.1 10^3/uL (4.0-10.0)
[2020-04-12 15:00] LABS: ALBUMIN 3.8 GM/DL (3.2-5.2); BILIRUBIN,TOTAL 0.5 MG/DL (0.2-1.0); CREATININE FOR GFR 1.35 MG/DL (0.55-1.30); GLOMERULAR FILTRATION RATE 44.7 (>58); POTASSIUM SERUM 4.6 MEQ/L (3.5-5.1)
[2020-04-12 15:06] LABS: TOTAL PROTEIN,RANDOM URINE 21.6 MG/DL (0.0-12.0)
[2020-04-12 15:13] LABS: ERYTHROCYTE SEDIMENTATION RATE 12 mm/hr (0-20)
== END ==
LOC: M PLALAB 10:53
PROVIDERS: ATTEND Internal Medicine
DX: M32.9 Systemic lupus erythematosus, unspecified (principal)
CPT/HCPCS: 36415; 80053; 82570; 84156; 85025; 85652; G0463

== ENCOUNTER 2020-04-30 10:29 | Outpatient (CLI) | payer MEDICARE, MEDICAID ==
[2020-04-30] MEDS ORDERED: SODIUM CHLORIDE 0.9% 500 ML ONE (10:30)
[2020-04-30] MEDS ORDERED: ONDANSETRON 4MG/2ML VIAL ONE (10:30)
[2020-04-30] MEDS ORDERED: BELIMUMAB ONE ×2 (10:30)
[2020-04-30] MEDS ORDERED: ONDANSETRON 4MG/2ML VIAL As Ordered ONE (10:49)
== END 2020-04-30 12:40 | disposition home or self-care (01) ==
LOC: M INFU 10:29
PROVIDERS: ATTEND Internal Medicine
DX: M32.9 Systemic lupus erythematosus, unspecified (principal)
CPT/HCPCS: 96365; 96367; J0490; J2405

== ENCOUNTER 2020-06-01 14:43 | Outpatient (CLI) | payer MEDICARE, MEDICAID ==
[~2020-06-01] VITALS: Ht 149.9 cm; Wt 69.8 kg
[~2020-06-01 14:43] MED LIST changes: +ALBUTEROL SULFATE 2.5 MG/0.5 ML INH NEB SOLN INH PRN; +BELIMUMAB IV ONE; +EPINEPHrine INJ 1 MG/ML 1ML AMP IM PRN; +NS IV ONE; +ONDANSETRON 4MG/2ML VIAL IV ONE; +diphenhydrAMINE 50MG/ML VIAL (J1200) IV PRN; +methylPREDNISolone 125MG 2ML VIAL IV PRN
[2020-06-01 14:54] VITALS: BP 102/57
[2020-06-01 16:32] VITALS: BP 97/56
== END 2020-06-01 16:30 | disposition home or self-care (01) ==
LOC: M INFU 14:43
PROVIDERS: ATTEND Internal Medicine
DX: M32.9 Systemic lupus erythematosus, unspecified (principal)
CPT/HCPCS: 96374; J0490

== ENCOUNTER 2020-06-29 11:24 | Outpatient (CLI) | payer MEDICARE, MEDICAID ==
[~2020-06-29] VITALS: Ht 180.3 cm; Wt 69.8 kg
[~2020-06-29 11:24] MED LIST changes: -ONDANSETRON 4MG/2ML VIAL IV ONE
[2020-06-29 11:30] VITALS: BP 129/79
[2020-06-29] MEDS ORDERED: ONDANSETRON 4MG/2ML VIAL IV ONE (11:45)
[2020-06-29 14:00] VITALS: BP 95/53
== END 2020-06-29 14:00 | disposition home or self-care (01) ==
LOC: M INFU 11:24
PROVIDERS: ATTEND Internal Medicine
DX: M32.9 Systemic lupus erythematosus, unspecified (principal); Z88.1 Allergy status to other antibiotic agents; Z88.2 Allergy status to sulfonamides; Z88.8 Allergy status to other drugs, medicaments and biological substances; Z91.040 Latex allergy status
CPT/HCPCS: 96365; J0490; J2405

== ENCOUNTER 2020-07-27 11:21 | Outpatient (CLI) | payer MEDICARE, MEDICAID ==
[~2020-07-27] VITALS: Ht 175.3 cm; Wt 69.8 kg
[~2020-07-27 11:21] MED LIST changes: -BELIMUMAB IV ONE; -NS IV ONE
[2020-07-27 11:25] VITALS: BP 140/76
[2020-07-27] MEDS ORDERED: BELIMUMAB IV ONE (11:30)
[2020-07-27] MEDS ORDERED: NS IV ONE (11:30)
[2020-07-27] MEDS ORDERED: ONDANSETRON 4MG/2ML VIAL IV ONE (11:30)
[2020-07-27 13:45] VITALS: BP 125/73
== END 2020-07-27 13:45 | disposition home or self-care (01) ==
LOC: M INFU 11:21
PROVIDERS: ATTEND Internal Medicine
DX: M32.9 Systemic lupus erythematosus, unspecified (principal)
CPT/HCPCS: 96365; 96375; J0490; J2405

== ENCOUNTER → 2020-08-24 | Outpatient (CLI) | payer MEDICARE, MEDICAID ==
[~2020-08-24] VITALS: Ht 149.9 cm; Wt 69.8 kg
[~2020-08-24] MED LIST changes: +BELIMUMAB IV ONE; +BELIMUMAB in NS 250 ML OVER 1 HOUR IV ONE; +NS IV ONE; +ONDANSETRON 4MG/2ML VIAL IV ONE
[2020-08-24 11:25] VITALS: BP 131/75
[2020-08-24 14:05] VITALS: BP 135/80
== END ==
LOC: M INFU 11:16
PROVIDERS: ATTEND Internal Medicine
DX: M32.9 Systemic lupus erythematosus, unspecified (principal); Z88.1 Allergy status to other antibiotic agents; Z88.2 Allergy status to sulfonamides; Z91.040 Latex allergy status
CPT/HCPCS: 96365; 96375; J0490; J2405

== ENCOUNTER 2020-08-27 15:28 | Outpatient (CLI) | payer MEDICARE, MEDICAID ==
[~2020-08-27] VITALS: Ht 149.9 cm; Wt 69.8 kg
[2020-08-27 15:18] VITALS: BP 117/70
[2020-08-27 15:20] VITALS: BP 117/70
[~2020-08-27 15:28] MED LIST changes: -ALBUTEROL SULFATE 2.5 MG/0.5 ML INH NEB SOLN INH PRN; -BELIMUMAB IV ONE; -BELIMUMAB in NS 250 ML OVER 1 HOUR IV ONE; -EPINEPHrine INJ 1 MG/ML 1ML AMP IM PRN; -NS IV ONE; -ONDANSETRON 4MG/2ML VIAL IV ONE; -diphenhydrAMINE 50MG/ML VIAL (J1200) IV PRN; -methylPREDNISolone 125MG 2ML VIAL IV PRN
[2020-08-27] MEDS ORDERED: BELIMUMAB IV ONE (15:30)
[2020-08-27] MEDS ORDERED: NS IV ONE (15:30)
[2020-08-27] MEDS ORDERED: ONDANSETRON 4MG/2ML VIAL IV ONE (15:30)
[2020-08-27 16:44] VITALS: BP 102/59
== END 2020-08-27 16:50 | disposition home or self-care (01) ==
LOC: M INFU 15:28
PROVIDERS: ATTEND Internal Medicine
DX: M32.19 Other organ or system involvement in systemic lupus erythematosus (principal); Z88.1 Allergy status to other antibiotic agents; Z88.2 Allergy status to sulfonamides; Z91.040 Latex allergy status
CPT/HCPCS: 96365; 96375; J0490; J2405

== ENCOUNTER → 2020-09-17 | Outpatient (CLI) | payer MEDICARE, MEDICAID ==
--- NOTE | 2020-09-17 11:39 | REP ---
INDICATION: LT LEG PAIN SWELLING ? DVT. COMPARISON: Deep vein duplex ultrasound of the left lower extremity dated 11/17/2017. TECHNIQUE: Duplex ultrasound of the left lower extremity deep veins. FINDINGS: The left lower extremity deep veins demonstrate normal compression, normal Doppler color flow and normal Doppler waveforms with respiration augmentation at multiple levels. IMPRESSION: There is no duplex ultrasound evidence of left lower extremity deep vein thrombus. There is no change from the prior study. <Electronically signed by Osvaldo Vera > 09/17/20 [id number]
== END ==
LOC: M RAD 11:11
PROVIDERS: ATTEND Nurse Practitioner Adult Health
DX: M79.662 Pain in left lower leg (principal); R06.02 Shortness of breath; Z20.828 Contact with and (suspected) exposure to other viral communicable diseases
CPT/HCPCS: 93971; G0463; G8483; U0003

== ENCOUNTER 2020-09-21 15:35 | Outpatient (CLI) | payer MEDICARE, MEDICAID ==
[~2020-09-21] VITALS: Ht 149.9 cm; Wt 69.8 kg
[~2020-09-21 15:35] MED LIST changes: +ALBUTEROL SULFATE 2.5 MG/0.5 ML INH NEB SOLN INH PRN; +BELIMUMAB in NS 250 ML OVER 1 HOUR IV ONE; +EPINEPHrine INJ 1 MG/ML 1ML AMP IM PRN; +NS 1,000 ML IV SCH; +diphenhydrAMINE 50MG/ML VIAL (J1200) IV PRN; +methylPREDNISolone 125MG 2ML VIAL IV PRN
[2020-09-21] MEDS ORDERED: ONDANSETRON 4MG/2ML VIAL IV ONE (16:00)
[2020-09-21 16:11] VITALS: BP 98/53
[2020-09-21 17:55] VITALS: BP 127/79
== END 2020-09-21 17:56 | disposition home or self-care (01) ==
LOC: M INFU 15:35
PROVIDERS: ATTEND Internal Medicine
DX: M32.9 Systemic lupus erythematosus, unspecified (principal); Z88.1 Allergy status to other antibiotic agents; Z88.2 Allergy status to sulfonamides; Z88.8 Allergy status to other drugs, medicaments and biological substances; Z91.040 Latex allergy status
CPT/HCPCS: 96365; J0490; J2405

== ENCOUNTER 2020-11-16 11:16 | Outpatient (CLI) | payer MEDICARE, MEDICAID ==
[~2020-11-16] VITALS: Ht 149.9 cm; Wt 69.8 kg
[~2020-11-16 11:16] MED LIST changes: +BELIMUMAB IV ONE; -BELIMUMAB in NS 250 ML OVER 1 HOUR IV ONE; +GABA-282 PO; -GABA-843 PO; -LISI-538 PO; +LISI20TA33 PO; -LISI40TA PO; +LISI40TA4 PO; +NS IV ONE; +ONDANSETRON 4MG/2ML VIAL IV ONE
[2020-11-16 11:39] VITALS: BP 125/70
[2020-11-16 11:43] VITALS: BP 126/70
[2020-11-16 13:15] VITALS: BP 130/66
== END 2020-11-16 13:15 | disposition home or self-care (01) ==
LOC: M INFU 11:16
PROVIDERS: ATTEND Internal Medicine
DX: M32.9 Systemic lupus erythematosus, unspecified (principal); Z88.1 Allergy status to other antibiotic agents; Z88.2 Allergy status to sulfonamides; Z88.8 Allergy status to other drugs, medicaments and biological substances; Z91.040 Latex allergy status
CPT/HCPCS: 96365; 96375; J0490; J2405

== ENCOUNTER → 2020-12-06 | Outpatient (REF) | payer MEDICARE, MEDICAID ==
[~2020-12-06] MED LIST changes: -ALBUTEROL SULFATE 2.5 MG/0.5 ML INH NEB SOLN INH PRN; -BELIMUMAB IV ONE; -EPINEPHrine INJ 1 MG/ML 1ML AMP IM PRN; -NS 1,000 ML IV SCH; -NS IV ONE; -ONDANSETRON 4MG/2ML VIAL IV ONE; -diphenhydrAMINE 50MG/ML VIAL (J1200) IV PRN; -methylPREDNISolone 125MG 2ML VIAL IV PRN
[2020-12-06 17:10] LABS: BASO % 0.3 % (0.0-1.0); EOS % 0.1 % (0.0-3.0); HEMATOCRIT 46.7 % (36.0-47.0); HEMOGLOBIN 15.1 g/dl (12.0-15.5); LYMPH # 0.6 10^3/uL (1.5-5.0); LYMPH % 5.3 % (24.0-44.0); MEAN CORPUSCULAR HEMOGLOBIN 30.3 pg (27.0-33.0); MEAN CORPUSCULAR HGB CONC 32.3 g/dl (32.0-36.5); MEAN CORPUSCULAR VOLUME 93.6 fl (80.0-96.0); MONO # 0.4 10^3/uL (0.0-0.8); MONO % 4.1 % (2.0-8.0); NEUTROPHILS # 9.6 10^3/uL (1.5-8.5); NEUTROPHILS % 89.1 % (36.0-66.0); PLATELET COUNT, AUTOMATED 299 10^3/uL (150-450); RED BLOOD COUNT 4.99 10^6/uL (4.00-5.40); WHITE BLOOD COUNT 10.8 10^3/uL (4.0-10.0)
[2020-12-06 17:28] LABS: TOTAL PROTEIN,RANDOM URINE 26.2 MG/DL (0.0-12.0)
[2020-12-06 17:33] LABS: ALBUMIN 3.6 GM/DL (3.2-5.2); BILIRUBIN,TOTAL 0.3 MG/DL (0.2-1.0); CALCIUM LEVEL 8.7 MG/DL (8.5-10.1); CREATININE FOR GFR 1.17 MG/DL (0.55-1.30); GLOMERULAR FILTRATION RATE 52.8 (>58); POTASSIUM SERUM 4.4 MEQ/L (3.5-5.1)
[2020-12-06 17:37] LABS: ERYTHROCYTE SEDIMENTATION RATE 8 mm/hr (0-20)
[2020-12-10 13:06] LABS: ANTI DS-DNA AB Negative (Negative)
== END ==
LOC: M SFHCRHEU 15:25
PROVIDERS: ATTEND Internal Medicine
DX: M32.9 Systemic lupus erythematosus, unspecified (principal)
CPT/HCPCS: 80053; 82570; 84156; 85025; 85652; 86160; 86225; 96372; J1040

== ENCOUNTER 2020-12-14 11:21 | Outpatient (CLI) | payer MEDICARE, MEDICAID ==
[~2020-12-14 11:21] MED LIST changes: +ALBUTEROL SULFATE 2.5 MG/0.5 ML INH NEB SOLN INH PRN; +BELIMUMAB IV ONE; +EPINEPHrine INJ 1 MG/ML 1ML AMP IM PRN; +NS IV ONE; +ONDANSETRON 4MG/2ML VIAL IV ONE; +diphenhydrAMINE 50MG/ML VIAL (J1200) IV PRN; +methylPREDNISolone 125MG 2ML VIAL IV PRN; +methylPREDNISolone 40MG 1ML VIAL IV ONE
[2020-12-14 11:25] VITALS: BP 141/72
[2020-12-14] MEDS ORDERED: BELIMUMAB IV ONE ×3 (13:00)
[2020-12-14] MEDS ORDERED: NS IV ONE ×3 (13:00)
[2020-12-14 14:15] VITALS: BP 114/58
== END 2020-12-14 14:15 | disposition home or self-care (01) ==
LOC: M INFU 11:21
PROVIDERS: ATTEND Internal Medicine
DX: M32.9 Systemic lupus erythematosus, unspecified (principal); Z88.1 Allergy status to other antibiotic agents; Z88.2 Allergy status to sulfonamides; Z88.8 Allergy status to other drugs, medicaments and biological substances; Z91.040 Latex allergy status
CPT/HCPCS: 96365; 96375; J0490; J2405; J2920

== ENCOUNTER 2020-12-19 13:10 | Outpatient (CLI) | payer MEDICARE, MEDICAID ==
[~2020-12-19] VITALS: Ht 149.9 cm; Wt 91.7 kg
[2020-12-19 13:15] VITALS: BP 121/80
[2020-12-19 14:53] VITALS: BP 100/55
== END 2020-12-19 15:00 | disposition home or self-care (01) ==
LOC: M INFU 13:10
PROVIDERS: ATTEND Internal Medicine
DX: M32.9 Systemic lupus erythematosus, unspecified (principal); Z88.1 Allergy status to other antibiotic agents; Z88.2 Allergy status to sulfonamides; Z88.8 Allergy status to other drugs, medicaments and biological substances; Z91.040 Latex allergy status
CPT/HCPCS: 96365; 96413; J0490; J2405

== ENCOUNTER 2021-02-11 14:18 | Outpatient (CLI) | payer MEDICARE, MEDICAID ==
[~2021-02-11] VITALS: Ht 149.9 cm; Wt 91.7 kg
[~2021-02-11 14:18] MED LIST changes: -BELIMUMAB IV ONE; +BELIMUMAB in NS 250 ML OVER 1 HOUR IV ONE; -NS IV ONE; -methylPREDNISolone 40MG 1ML VIAL IV ONE
[2021-02-11 14:20] VITALS: BP 156/83
[2021-02-11] MEDS ORDERED: NS 1,000 ML IV SCH (14:35)
[2021-02-11] MEDS ORDERED: ONDANSETRON 4MG/2ML VIAL IV ONE (14:45)
[2021-02-11] MEDS ORDERED: BELIMUMAB IV ONE (15:00)
[2021-02-11] MEDS ORDERED: NS IV ONE (15:00)
[2021-02-11 16:10] VITALS: BP 114/56
== END 2021-02-11 16:15 | disposition home or self-care (01) ==
LOC: M INFU 14:18
PROVIDERS: ATTEND Internal Medicine
DX: M32.9 Systemic lupus erythematosus, unspecified (principal); Z88.1 Allergy status to other antibiotic agents; Z88.2 Allergy status to sulfonamides; Z91.040 Latex allergy status
CPT/HCPCS: 96365; 96375; J0490; J2405

== ENCOUNTER 2021-03-11 13:35 | Outpatient (CLI) | payer MEDICARE, MEDICAID ==
[~2021-03-11] VITALS: Ht 149.9 cm; Wt 74.5 kg
[2021-03-11 13:35] VITALS: BP 113/55
[~2021-03-11 13:35] MED LIST changes: +BELIMUMAB IV ONE; -BELIMUMAB in NS 250 ML OVER 1 HOUR IV ONE; +NS 1,000 ML IV SCH; +NS IV ONE
[2021-03-11 15:53] VITALS: BP 106/61
== END 2021-03-11 16:10 | disposition home or self-care (01) ==
LOC: M INFU 13:35
PROVIDERS: ATTEND Internal Medicine
DX: M32.9 Systemic lupus erythematosus, unspecified (principal); Z88.1 Allergy status to other antibiotic agents; Z88.2 Allergy status to sulfonamides; Z91.040 Latex allergy status
CPT/HCPCS: 96365; 96375; J0490; J2405

== ENCOUNTER 2021-04-11 15:00 | Outpatient (CLI) | payer MEDICARE, MEDICAID ==
[~2021-04-11] VITALS: Ht 149.9 cm; Wt 91.7 kg
[~2021-04-11 15:00] MED LIST changes: -BELIMUMAB IV ONE; +BELIMUMAB in NS 250 ML OVER 1 HOUR IV ONE; -NS 1,000 ML IV SCH; -NS IV ONE
[2021-04-11 15:15] VITALS: BP 140/93
[2021-04-11 17:20] VITALS: BP 140/88
== END 2021-04-11 17:20 | disposition home or self-care (01) ==
LOC: M INFU 15:00
PROVIDERS: ATTEND Internal Medicine
DX: M32.9 Systemic lupus erythematosus, unspecified (principal); Z88.1 Allergy status to other antibiotic agents; Z88.2 Allergy status to sulfonamides; Z88.8 Allergy status to other drugs, medicaments and biological substances; Z91.040 Latex allergy status
CPT/HCPCS: 96365; 96375; J0490; J2405

== ENCOUNTER 2021-05-13 16:34 | Outpatient (CLI) | payer MEDICARE, MEDICAID ==
[~2021-05-13] VITALS: Ht 149.9 cm; Wt 91.7 kg
[~2021-05-13 16:34] MED LIST changes: +BELIMUMAB IV ONE; -BELIMUMAB in NS 250 ML OVER 1 HOUR IV ONE; +NS IV ONE
[2021-05-13 16:40] VITALS: BP 156/92
[2021-05-13 18:43] VITALS: BP 156/92
[2021-05-13 19:04] VITALS: BP 115/74
== END 2021-05-13 19:05 | disposition home or self-care (01) ==
LOC: M INFU 16:34
PROVIDERS: ATTEND Internal Medicine
DX: M32.9 Systemic lupus erythematosus, unspecified (principal); Z88.1 Allergy status to other antibiotic agents; Z88.2 Allergy status to sulfonamides; Z91.040 Latex allergy status
CPT/HCPCS: 96365; 96375; J0490; J2405

== ENCOUNTER 2021-07-05 16:23 | Outpatient (CLI) | payer MEDICARE, MEDICAID ==
[~2021-07-05] VITALS: Ht 149.9 cm; Wt 91.7 kg
[~2021-07-05 16:23] MED LIST changes: +NS 1,000 ML IV SCH
[2021-07-05 16:25] VITALS: BP 136/67
[2021-07-05 18:49] VITALS: BP 112/72
== END 2021-07-05 18:50 | disposition home or self-care (01) ==
LOC: M INFU 16:23
PROVIDERS: ATTEND Internal Medicine
DX: M32.9 Systemic lupus erythematosus, unspecified (principal); Z88.1 Allergy status to other antibiotic agents; Z88.2 Allergy status to sulfonamides; Z88.8 Allergy status to other drugs, medicaments and biological substances; Z91.040 Latex allergy status
CPT/HCPCS: 96365; 96375; J0490; J2405